=== PATIENT | male | born 1975 | race Native Hawaiian/Other Pacific Islander ===

== ENCOUNTER 2019-02-03 21:59 | Emergency (ER) | payer OTHER ==
[~2019-02-03] VITALS: Ht 182.9 cm; Wt 90.0 kg
[2019-02-04] MEDS ORDERED: IBUPROFEN 600 MG TABLET PO ONE (00:30)
[2019-02-04] MEDS ORDERED: PENICILLIN V POTASSIUM 500 MG TABLET PO ONE (00:30)
[2019-02-04] MEDS ORDERED: HYDROCODONE/ACETAMINOPHEN 5-325 MG TABLET PO ONE (00:30)
[2019-02-04 00:35] VITALS: BP 142/87
== END 2019-02-04 01:12 | disposition home or self-care (01) ==
LOC: EMS 22:00
DX: K04.7 Periapical abscess without sinus (principal); I10 Essential (primary) hypertension; Z88.5 Allergy status to narcotic agent; Z88.1 Allergy status to other antibiotic agents